=== PATIENT | female | born 1970 | race Caucasian/White ===

== ENCOUNTER 2016-07-11 19:08 | Emergency (ER) | payer OTHER ==
[~2016-07-11] VITALS: Ht 152.4 cm; Wt 93.4 kg
== END 2016-07-11 22:50 | disposition short-term general hospital (02) ==
LOC: ER 19:08
DX: N13.2 Hydronephrosis with renal and ureteral calculous obstruction (principal); Z79.899 Other long term (current) drug therapy
CPT/HCPCS: J1885; J2270; J2405